=== PATIENT | female | born 1975 | race Caucasian/White ===

== ENCOUNTER 2018-03-27 13:28 | Outpatient (CLI) | payer OTHER ==
--- NOTE | 2018-03-27 15:56 | MMO ---
BILATERAL SCREENING MAMMOGRAM: Date: 03/27/18 HISTORY: 42-year-old female. Routine screening mammography. COMPARISON: 02/26/16. TECHNIQUE: CC and MLO views of both breasts are submitted for interpretation. This patient's mammogram was reviewed with the assistance of computer-aided detection. FINDINGS: The breasts are composed of heterogeneously dense fibroglandular tissue, which limits the sensitivity of mammography in the detection of underlying malignancy. Left Breast: No suspicious dominant mass, architectural distortion, or suspicious calcification. The re are benign-appearing calcifications. Right Breast: There is a possible area of architectural distortion only appreciated in the inner asp ect of the right breast on the CC projection. Benign-appearing calcifications right breast are noted. IMPRESSION: BIRADS 0: Incomplete: Need Additional Imaging for Evaluation RECOMMENDATION: Spot view of the right breast in the CC projection, along with a mediolateral view. Ultrasound should be performed if possible distortion persists. The facility will notify patient of need for additional imaging services. POS: [facility]
== END 2018-03-27 13:29 | disposition home or self-care (01) ==
LOC: SCSMAMMO 13:28
PROVIDERS: ATTEND Obstetrics & Gynecology
DX: Z12.31 Encounter for screening mammogram for malignant neoplasm of breast (principal)
CPT/HCPCS: 77067

== ENCOUNTER 2018-04-04 14:46 | Outpatient (CLI) | payer OTHER | END 2018-04-04 14:47 | disposition home or self-care (01) | LOC: BICMAMMO 14:46 | PROVIDERS: ATTEND Obstetrics & Gynecology | DX: N65.1 Disproportion of reconstructed breast (principal) | CPT/HCPCS: G0279 ==

== ENCOUNTER 2019-03-28 09:41 | Outpatient (CLI) | payer OTHER ==
--- NOTE | 2019-03-28 10:35 | MMO ---
Bilateral MAMMO Bilat Screen [facility]. CLINICAL HISTORY: Patient is 43 years old and is seen for screening. The patient has no family history of breast cancer. The patient has no personal history of cancer. VIEWS: The views performed were: bilateral craniocaudal with tomosynthesis and bilateral mediolateral oblique with tomosynthesis. FILMS COMPARED: The present examination has been compared to a prior imaging study performed at [facility] on 04/04/2018. This study has been interpreted with the assistance of computer-aided detection. MAMMOGRAM FINDINGS: The breasts are heterogeneously dense, which could obscure a lesion on mammography. There are benign appearing calcifications seen in both breasts. There are no suspicious masses, suspicious calcifications, or new areas of architectural distortion. IMPRESSION: THERE IS NO MAMMOGRAPHIC EVIDENCE OF MALIGNANCY. A ROUTINE FOLLOW-UP MAMMOGRAM IN 1 YEAR IS RECOMMENDED. THE RESULTS OF THIS EXAM WERE SENT TO THE PATIENT. ACR BI-RADS Category 2 - Benign finding MAMMOGRAPHY NOTE: 1. A negative mammogram report should not delay a biopsy if a dominant of clinically suspicious mass is present. 2. Approximately 10% to 15% of breast cancers are not detected by mammography. 3. Adenosis and dense breasts may obscure an underlying neoplasm. Reported by: MARCELLA CADENA MD Electonically Signed: [id number]
== END 2019-03-28 09:42 | disposition home or self-care (01) ==
LOC: BICMAMMO 09:41
PROVIDERS: ATTEND Obstetrics & Gynecology
DX: Z12.31 Encounter for screening mammogram for malignant neoplasm of breast (principal)
CPT/HCPCS: 77063; 77067